=== PATIENT | female | born 1965 | race Caucasian/White ===

== ENCOUNTER 2019-11-09 07:49 | Day surgery (SDC) | payer OTHER ==
[~2019-11-09 07:49] MED LIST: Buffered Lidocaine 1% SYRIN* 1 ML/SYRINGE INTRADERM ONE; Dexamethasone IV* 4 MG/ML 1 ML (4 MG) IV SLOW PU ONE; DiMENhydriNATE IV* 50 MG/ML VIAL IV PUSH PRN; Famotidine IV* 10 MG/ML 2 ML (20 mg) IV ONE; Levalbuterol 0.63MG/3ML NEB* UNIT OF USE INH ONE; Naloxone* 0.4 MG/ML 1 ML VIAL IV PRN; Ondansetron ODT TAB* 4 MG PO ONE; PROCHLORPERAZINE INJ 5 MG/ML 2 ML VIAL IV PRN
[2019-11-09] MEDS ORDERED: ceFAZolin 2 GM in NS PREMIX(*) 2 GM/100 ML BAG IVPB ONE (08:46)
[2019-11-09] MEDS ORDERED: Levalbuterol 0.63MG/3ML NEB* UNIT OF USE INH ONE (08:46)
[2019-11-09] MEDS ORDERED: Ondansetron ODT TAB* 4 MG ONE (08:46)
[2019-11-09] MEDS ORDERED: Dexamethasone IV* 4 MG/ML 1 ML (4 MG) ONE (08:46)
[2019-11-09] MEDS ORDERED: Famotidine IV* 10 MG/ML 2 ML (20 mg) ONE (08:46)
[2019-11-09] MEDS ORDERED: KETAMINE HCL* 50 MG/ML 10 ML VIAL ONE (08:50)
[2019-11-09] MEDS ORDERED: Midazolam* 1 MG/ML 5 ML VIAL (5 MG) ONE (08:50)
[2019-11-09] MEDS ORDERED: fentaNYL* 50 MCG/ML 2 ML VIAL (100 MCG VIAL) ONE ×6 (08:50→14:14)
[2019-11-09] MEDS: Lactated Ringers 1000 ML Bag* 1,000 ML IV SCH ×2 (09:01→15:22)
[2019-11-09] MEDS ORDERED: Bupivacaine 0.25% SDV PF* 10 ML VIAL INJ ONE ×2 (09:53→12:17)
[2019-11-09] MEDS ORDERED: ceFAZolin VIAL(*) VIAL ONE (10:14)
[2019-11-09] MEDS ORDERED: Acetaminophen IV 1GM/100ML * 100 ML ONE (10:46)
[2019-11-09] MEDS ORDERED: Lidocaine 2% PF * 5 ML VIAL ONE (10:46)
[2019-11-09] MEDS ORDERED: Ketorolac INJ* 30 MG/ML 1 ML VIAL ONE (10:48)
[2019-11-09] MEDS ORDERED: Propofol* 10 MG/ML 20 ML BTL ONE (10:48)
[2019-11-09] MEDS ORDERED: EPHEDrine (Pressors)* 50 MG/ML VIAL ONE (12:25)
[2019-11-09] MEDS ORDERED: Glycopyrrolate IV* 0.2 MG/ML 1 ML VIAL ONE (12:25)
[2019-11-09] MEDS: fentaNYL* 50 MCG/ML 2 ML VIAL (100 MCG VIAL) IV PRN ×5 (12:58→14:15)
[2019-11-09] MEDS ORDERED: oxyCODONE TAB* 5 MG TAB ONE (13:36)
[2019-11-09] MEDS: oxyCODONE TAB* 5 MG TAB PO PRN ×2 (13:37→15:13)
[2019-11-09] MEDS ORDERED: PROCHLORPERAZINE INJ 5 MG/ML 2 ML VIAL ONE (13:41)
[2019-11-09] MEDS ORDERED: DiMENhydriNATE IV* 50 MG/ML VIAL ONE (14:36)
[2019-11-09 17:11] VITALS: BP 110/65
--- NOTE | 2019-11-09 22:48 | OP ---
DATE OF OPERATION: 11/09/19 - [facility] DATE OF : 65 SURGEON: Jorge A Rodriguez MD SUPERVISOR CONTACT AND SERVICE CLERKS: LION Garcia. An clinical physician assistant was needed for the entirety of the procedure to aid in positioning of the arm and retraction. ANESTHESIOLOGIST: Dr. Loja. ANESTHESIA: General. PRE-OP DIAGNOSIS: 1. Chronically painful left partial distal biceps tendon rupture. 2. Left median nerve compression proximal forearm. POST-OP DIAGNOSIS: 1. Chronically painful left partial distal biceps tendon rupture. 2. Left median nerve compression proximal forearm. OPERATIVE PROCEDURE: 1. Left distal biceps tendon repair. 2. Left median nerve decompression proximal forearm. ESTIMATED BLOOD LOSS: 5 mL. COMPLICATIONS: None. FINDINGS: See above and below. INDICATIONS: Ms. Aguilar had the partial tear quite some time ago. It is still painful several months later. She is modifying the way she does things. It causes her pain every night. She gets nerve symptoms in the median nerve distribution. I talked to her and her family even up until today. We talked about the risks including risk of neurovascular injury, risk of stiffness, and tendon rerupture. She still feels like she is in quite a bit of pain and she wants to proceed. DESCRIPTION OF PROCEDURE: Ms. Aguilar was seen in the preoperative holding area. The correct site, side, and procedure were identified. We came back to the operating room where the arm was prepped and draped in the usual fashion and a time-out was performed. The arm was exsanguinated with the Esmarch and the tourniquet was inflated to 250 mmHg. I made a longitudinal incision over the distal biceps tendon anteriorly starting at the antecubital flexion crease and going distally. It was about a 7 or 8 cm incision. Dissection was carried down through the subcutaneous tissue bluntly. There was a large superficial vein that was preserved. I opened up the fascia overlying the tendon. I then tracked the tendon down by placing [employer] retractors and an appendiceal retractor until I had nice view of the tendon attaching to the bone. I went ahead and maximally supinated and then used a curved Nicole to release the part of the tendon that was still attached from right off the bone. There was a very nodular and bulbous part of the tendon and it was obvious where it had partially torn off the bone. I then decompressed the median nerve. I released the lacertus fibrosis and the fascial overlying the median nerve proximally and distally. After I had fully released the nerve I went ahead and flexed the elbow up, I placed a Taylor clamp between the radius and the ulna so as to identify the anatomic location where the tendon bisects the bones. I made my skin incision dorsally in the typical location 1 cm radial to the ulnar subcutaneous border over the radial tuberosity. Full-thickness flaps were raised off the fascia. The fascia was opened. I followed the Taylor clamp back down and performed intramuscular split until I reached the supinator muscle. I released the supinator muscle with the Bovie and then excised the bursa over the tuberosity and any tendon remnants that were there I excised with the rongeur and the curette. Once I had the radial tuberosity completely clean, I went ahead and used my pineapple bur to make a longitudinal trough. I then rotated the forearm and used the 2.0 mm drill bit to make a couple of bone tunnels through the cortex entering the side of my trough. A 0 Prolene suture was placed through each bone tunnel. I then copiously irrigated out the wound with quite a bit of irrigation to try to prevent any HO or synostosis. I then came back up and whipstitched my tendon distally over a 5 to 8 cm space with #2 Ethibond and a #2 FiberWire. All 4 tendon tails were pulled down using a suture that I had placed in the tract of my biceps tendon with a Taylor clamp. I sutured shuttled the 4 limbs of the heavy suture down into the dorsal wound. My retractors were placed again dorsally. I then used a 0 Prolene suture to pull 2 strands out the distal bone tunnel and the other 2 strands out the proximal bone tunnel. Maximum tension was pulled on all 4 sutures to make sure the tendon was docked into the trough. I then first held tension on my #2 FiberWire while I tied off my #2 Ethibond and then I tied off my #2 FiberWire. There was excellent repair. The tendon was nicely docked in the trough. There was an excellent fit. There was good stability and no gapping. Everything was copiously irrigated out at this point. The fascia was closed with 2-0 Vicryl suture. The subcutaneous tissue was reapproximated with 2-0 Vicryl suture. Skin was closed with 3-0 Monocryl and Steri-Strips. 0.25% Marcaine was infiltrated. A well-padded long arm splint with a lateral buttress was applied with the elbow in 80 degrees of flexion. She was taken to the recovery room in stable condition. [id number] #: [id number] JAIME
== END 2019-11-09 17:15 | disposition home or self-care (01) ==
LOC: OR 07:49
PROVIDERS: ATTEND Orthopaedic Surgery Hand Surgery
DX: S46.212A Strain of muscle, fascia and tendon of other parts of biceps, left arm, initial encounter (principal); G56.12 Other lesions of median nerve, left upper limb; X50.0XXA Overexertion from strenuous movement or load, initial encounter; Y93.9 Activity, unspecified; Y92.9 Unspecified place or not applicable; J45.909 Unspecified asthma, uncomplicated; E03.9 Hypothyroidism, unspecified
CPT/HCPCS: A9270-GY; J0690; J0780; J1100; J1240; J1885; J2250; J2704; J3010; J3490